=== PATIENT | female | born 1975 | race Caucasian/White ===

== ENCOUNTER 2018-11-25 08:44 | Day surgery (SDC) | payer OTHER ==
[~2018-11-25 08:44] MED LIST: CEFAZOLIN 2 GM/50 ML (PMX) 50 ML IVPB; SOD CHLORIDE 0.9% 1,000 ML IV
[2018-11-25] MEDS ORDERED: PROPOFOL 20 ML (11:23)
[2018-11-25] MEDS ORDERED: MIDAZOLAM 1 MG/ML 2 ML INJ (11:23)
[2018-11-25] MEDS ORDERED: FENTAnyl 50 MCG/ML VIAL (11:24)
[2018-11-25] MEDS ORDERED: CEFAZOLIN 1 GM INJ (11:24)
[2018-11-25] MEDS: BUPIVACAINE 0.5%/EPI (SDV) 30 ML INJ (11:38)
[2018-11-25] MEDS: LIDOCAINE 2% (MDV) 20 ML INJ (11:38)
[2018-11-25] MEDS: FENTAnyl 50 MCG/ML VIAL IV (12:25)
[2018-11-25] MEDS ORDERED: MEPERIDINE 25 MG INJ IV (12:30)
[2018-11-25] MEDS ORDERED: ONDANSETRON 4 MG INJ IV (12:30)
[2018-11-25] MEDS ORDERED: MIDAZOLAM 1 MG/ML 2 ML INJ IV (12:30)
[2018-11-25] MEDS ORDERED: FENTAnyl 50 MCG/ML VIAL IV ×2 (12:30)
[2018-11-25] MEDS ORDERED: METOCLOPRAMIDE 10 MG INJ IV (12:30)
[2018-11-25] MEDS ORDERED: OXYCODONE/ACETAMINOPHEN (5/325) TAB PO (12:30)
[2018-11-25] MEDS: DIPHENHYDRAMINE 50 MG INJ IV (12:32)
[2018-11-25] MEDS: OXYCODONE/ACETAMINOPHEN (5/325) TAB PO (13:16)
== END 2018-11-25 14:00 | disposition home or self-care (01) ==
LOC: SDS 08:44
DX: D17.1 Benign lipomatous neoplasm of skin and subcutaneous tissue of trunk (principal)
CPT/HCPCS: 21933; 84703; 88304